=== PATIENT | male | born 1970 | race Caucasian/White ===

== ENCOUNTER 2023-01-12 13:10 | Emergency (ER) | payer SELFPAY ==
[~2023-01-12] VITALS: Ht 175.3 cm; Wt 96.0 kg
[2023-01-12 13:15] VITALS: O2SAT 98
[2023-01-12] MEDS ORDERED: TETANUS, DIPHTHERIA, PERTUSSIS VAC/PF 0.5ML (>10YR OLD) IM ONE (13:30)
[2023-01-12] MEDS ORDERED: LIDOCAINE HCL/EPINEPHRINE 1%-EPI 1:100,000 20 ML VIAL INFIL ONE (13:30)
[2023-01-12] MEDS ORDERED: LIDOCAINE HCL/EPINEPHRINE 1%-EPI 1:100,000 10 ML VIAL INFIL NR (13:45)
[2023-01-12] MEDS ORDERED: LIDOCAINE HCL 1% 20ML VIAL (Pyxis) INJ INFIL ONE (14:45)
[2023-01-12 16:37] VITALS: BP 138/97; PULSE 83; RESP 18; TEMP 97.7
[2023-01-12] MEDS ORDERED: LORAZEPAM 2MG/ML CPJ IV ONE (22:00)
== END 2023-01-12 17:23 | disposition home or self-care (01) ==
LOC: ER 13:28
DX: S01.81XA Laceration without foreign body of other part of head, initial encounter (principal); F10.129 Alcohol abuse with intoxication, unspecified; Y90.0 Blood alcohol level of less than 20 mg/100 ml; W18.39XA Other fall on same level, initial encounter; Y93.89 Activity, other specified; Y92.89 Other specified places as the place of occurrence of the external cause; Y99.8 Other external cause status
CPT/HCPCS: 99283; 90715; 12015; 90471; J3490